=== PATIENT | male | born 1965 | race Caucasian/White ===

== ENCOUNTER 2022-12-27 21:03 | Emergency (ER) | payer OTHER ==
[2022-12-27 21:31] LABS: #Monocytes 1.2 thou/uL (0.11-0.59); #Neutrophils 10.7 thou/uL (1.40-6.50); %Basophils 0.3 % (0.0-1.0); %Eosinophils 0.3 % (0.0-10.0); %Monocytes 9.2 % (0.0-10.0); %Neutrophils 79.8 % (42.0-75.0); Hematocrit 42.6 % (42.0-52.0); Hemoglobin 14.5 g/dL (14.0-18.0); Mean Corpuscular Hemoglobin 30.9 pg (27.0-31.0); Mean Corpuscular Volume 90.8 fl (78.0-98.0); Mean Platelet Volume 8.7 fL (7.4-10.4); Platelet Count 280 10x3/uL (130-400); Red Blood Cell (RBC) Count 4.69 mill/uL (4.70-6.10); White Blood Cell (WBC) Count 13.4 10x3/uL (4.8-10.8)
[2022-12-27 22:03] LABS: ALT (SGPT) 28 U/L (8-55); AST (SGOT) 24 U/L (5-34); Albumin 4.3 g/dL (3.5-5.0); Alkaline Phosphatase 84 U/L (40-110); Anion Gap 15 mmol/L (10-20); BUN (Urea Nitrogen) 13 mg/dL (8.4-25.7); Bilirubin, Total 0.7 mg/dL (0.2-1.2); Calc. Creatinine Clearance 0 mL/min (70-130); Calcium 9.1 mg/dL (7.8-10.44); Carbon Dioxide 22 mmol/L (22-29); Chloride 104 mmol/L (98-107); Estimated GFR 82; Glucose 118 mg/dL (70-105); Potassium 4.4 mmol/L (3.5-5.1); Protein, Total 7.3 g/dL (6.0-8.3); Sodium 137 mmol/L (136-145)
[2022-12-27] MEDS ORDERED: cefTRIAXone (ROCEPHIN) 2 GM VIAL ONE (22:39)
[2022-12-27] MEDS ORDERED: Morphine 4 MG/ML VIAL ONE (22:39)
[2022-12-27] MEDS ORDERED: Vancomycin 1 GM/200 ML (FROZEN) BAG ONE (23:09)
[2022-12-28] MEDS ORDERED: Morphine 4 MG/ML VIAL ONE (00:39)
== END 2022-12-28 01:37 | disposition short-term general hospital (02) ==
LOC: ERS 21:03
DX: M00.9 Pyogenic arthritis, unspecified (principal)
CPT/HCPCS: 10060; 36415; 80053; 83605; 85025; 86140; J0696; J2270; J3370-JW